=== PATIENT | male | born 1990 | race Caucasian/White ===

== ENCOUNTER 2019-03-01 15:54 | Emergency (ER) | payer OTHER ==
[~2019-03-01] VITALS: Ht 185.4 cm; Wt 81.7 kg
[~2019-03-01 15:54] MED LIST: AMOCLA500 PO; AMOX250; AMOX250 PO; AMPDEX10; HYDHCL10; Prednisone20 MG PO
[2019-03-01] MEDS ORDERED: Bactrim Ds Tab1 EACH PO (18:16)
[2019-03-01] MEDS ORDERED: BENZ100A PO (18:16)
== END 2019-03-01 18:29 | disposition home or self-care (01) ==
LOC: ER 15:54
DX: L03.211 Cellulitis of face (principal); J20.9 Acute bronchitis, unspecified; Z88.5 Allergy status to narcotic agent; F17.200 Nicotine dependence, unspecified, uncomplicated
CPT/HCPCS: 71046; 99283-25; A9270-GY

== ENCOUNTER → 2019-04-08 | Outpatient (CLI) | payer OTHER ==
[~2019-04-08] MED LIST changes: +BENZ100A PO; +Bactrim Ds Tab1 EACH PO
== END ==
LOC: LAB EV 18:50 → LAB SHORT 18:50
DX: L73.9 Follicular disorder, unspecified (principal)
CPT/HCPCS: 87070; 87205